=== PATIENT | female | born 1945 ===

== ENCOUNTER 2017-03-29 22:14 | Emergency (ER) | payer MEDICARE, MEDICAID ==
[2017-03-29 22:15] VITALS: BMI 29.2
[2017-03-29 22:33] VITALS: BP 123/76; PULSE 61; RESP 18; TEMP 97.8; O2SAT 99
[2017-03-29] MEDS ORDERED: Naproxen 550 mg Tab PO STA (23:25)
[2017-03-29] MEDS ORDERED: Naproxen 550 mg Tab PO ONE (23:43)
--- NOTE | 2017-03-29 23:56 | C.PDOC ---
History Of Present Illness 71 y/o female presents to ED with complaints of left knee pain since today. States pain is worse when walking. Denies taking any pain meds. Denies any injury, trauma, weakness/numbness, or any other associates symptoms at this time. Time Seen by Provider: 03/29/17 23:11 Chief Complaint (Nursing): Lower Extremity Problem/Injury History Per: Patient History/Exam Limitations: no limitations Onset/Duration Of Symptoms: Hrs Current Symptoms Are (Timing): Still Present Recent travel outside of the [place]: No Additional History Per: Patient Past Medical History Reviewed: Historical Data, Nursing Documentation, Vital Signs Vital Signs: Last Vital Signs Temp 97.8 F 03/29/17 22:29 Pulse 61 03/29/17 22:29 Resp 18 03/29/17 22:29 BP 123/76 03/29/17 22:29 Pulse Ox 99 03/30/17 01:00 - Medical History PMH: Gall Bladder Disease, HTN Denies: Chronic Kidney Disease Surgical History: Cholecystectomy - [facility] Procedures CATARAC PHACOEMULS/ASPIR (11/12/13) INSERT LENS AT CATAR EXT (11/12/13) Family History: States: Unknown Family Hx - Social History Hx Alcohol Use: No Hx Substance Use: No Review Of Systems Except As Marked, All Systems Reviewed And Found Negative. Constitutional: Negative for: Fever, Chills Musculoskeletal: Positive for: Leg Pain (left knee) Skin: Negative for: Bruising Neurological: Negative for: Weakness, Numbness Physical Exam - Physical Exam Appears: Non-toxic, No Acute Distress Skin: Normal Color, Warm, Dry Head: Atraumatic, Normacephalic Eye(s): bilateral: Normal Inspection, EOMI Nose: Normal Oral Mucosa: Moist Neck: Normal ROM, Supple Chest: Symmetrical Respiratory: No Accessory Muscle Use Extremity: Normal ROM, Tenderness (diffuse left knee), No Pedal Edema, No Calf Tenderness, Capillary Refill (< 2 sec.), No Deformity, Swelling (mild left knee) Extremity: Bilateral: Atraumatic, Normal Color And Temperature, Normal ROM Pulses: Left Dorsalis Pedis: Normal, Right Dorsalis Pedis: Normal Neurological/Psych: Oriented x3, Normal Speech, Normal Motor, Normal Sensation ED Course And Treatment O2 Sat by Pulse Oximetry: 99 Pulse Ox Interpretation: Normal - Other Rad Left knee x-ray X-Ray: Interpreted by Me, Viewed By Me Interpretation: No acute fracture, or dislocation. (+) arthritis Progress Note: Left knee x-ray ordered and reviewed. Patient was given Nzproxen in the ER. Knee brace applied to left knee by computer operations technician and cheked by me. Patient is being discharged home, and is instructed to f/u with PMD in 1-2 days. Disposition - Disposition Referrals: Palmira Hernandez MD [Primary Care Provider] - John Monroe MD [Staff Provider] - Disposition: HOME/ ROUTINE Disposition Time: 23:54 Condition: STABLE Additional Instructions: Rest, ice and elevate the area. Follow up with bone doctor in 1-2 days. Return to ER if symptoms persist or worsen. Prescriptions: Naproxen [Naprosyn] 1 tab PO BID PRN #20 tab PRN Reason: Pain Instructions: Osteoarthritis (ED) - Clinical Impression Clinical Impression: Arthritis, Knee pain - PA / STUDENT LIFE COORDINATOR / Resident Statement MD/DO has reviewed & agrees with the documentation as recorded. - Scribe Statement The provider has reviewed the documentation as recorded by the Scribe Mervin Hernandez All medical record entries made by the Scribe were at my direction and personally dictated by me. I have reviewed the chart and agree that the record accurately reflects my personal performance of the history, physical exam, medical decision making, and the department course for this patient. I have also personally directed, reviewed, and agree with the discharge instructions and disposition.
--- NOTE | 2017-03-30 10:46 | RAD ---
PROCEDURE: Left Knee Radiographs. HISTORY: Pain. No history of recent/ related trauma provided COMPARISON: None. FINDINGS: BONES: Normal. No fracture. JOINTS: No significant degenerative change and/or osteoarthritis JOINT EFFUSION: None. OTHER FINDINGS: None. IMPRESSION: No acute findings related to/accounting for the clinical presentation. Concordant results with the preliminary interpretation rendered by the emergency department physician procedure.
== END 2017-03-30 00:10 | disposition home or self-care (01) ==
LOC: SUPCPDRO 22:14 → C.ER 22:14
DX: M17.12 Unilateral primary osteoarthritis, left knee (principal)